=== PATIENT | female | born 2000 | race Caucasian/White ===

== ENCOUNTER 2021-08-25 00:02 | Inpatient (IN) ==
[2021-08-25] MEDS ORDERED: TERBUTALINE 1 MG/1 ML VIAL SUBCUT PRN (00:25)
[2021-08-25] MEDS ORDERED: LACTATED RINGERS 500 ML IV PRN (00:25)
[2021-08-25] MEDS ORDERED: MEPERIDINE 50 MG/1 ML VIAL IV PRN ×2 (00:26→00:34)
[2021-08-25] MEDS ORDERED: miSOPROStoL 200 MCG TABLET RECTAL PRN (00:26)
[2021-08-25] MEDS ORDERED: TRANEXAMIC ACID 1,000 MG in SODIUM CHLORIDE 0.9% 100 ML IV PRN (00:26)
[2021-08-25] MEDS ORDERED: METHYLERGONOVINE 0.2 MG/1 ML AMP IM PRN (00:26)
[2021-08-25] MEDS ORDERED: ONDANSETRON 4 MG/2 ML VIAL IV PRN ×2 (00:26→19:24)
[2021-08-25] MEDS ORDERED: OXYTOCIN/LR 20 UNIT/1,000 ML BAG IV ONE ×2 (00:26→19:24)
[2021-08-25] MEDS ORDERED: ACETAMINOPHEN 500 MG TABLET PO PRN (00:26)
[2021-08-25] MEDS ORDERED: CARBOPROST TROMETHAMINE 250 MCG/ML AMP IM PRN (00:26)
[2021-08-25] MEDS ORDERED: FAMOTIDINE 20 MG/2 ML VIAL IV SCH (00:30)
[2021-08-25] MEDS: LACTATED RINGERS 1,000 ML IV SCH ×4 (00:50→12:45)
[2021-08-25 01:26] LABS: Albumin 2.6 G/DL (3.4-5.0); Bilirubin,Total 0.5 MG/DL (0.20-1.00); Calcium 8.8 MG/DL (8.5-10.1); Osmolality,Calculated 271.7 MOS/KG (273-304); Potassium 3.7 MMOL/L (3.5-5.1); Total Protein 6.3 G/DL (6.4-8.2)
[2021-08-25 01:29] LABS: Basophils % 0.2 % (0.0-0.8); Eosinophils % 0.4 % (0.00-10.9); Hematocrit 30.3 VOL% (35.7-47.0); Hemoglobin 9.8 GM/DL (12.0-16.0); Immature Granulocytes % 0.2 %; Immature Granulocytes Absolute 0.02 #; Lymphocytes # 2.7 10*3/uL (1.4-4.0); Lymphocytes % 25.5 % (21.3-54.2); Mean Corpuscular HGB Conc 32.3 GM/DL (32-36); Mean Corpuscular Volume 87.6 FL (87-102); Mean Platelet Volume 9.6 FL (9.6-12.0); Monocytes # 1.1 10*3/uL (0.11-0.8); Monocytes % 10.5 % (1.7-12.7); Neutrophils % 63.2 % (38.7-73.9); Platelet Count 316 T/CUMM (130-400); Red Blood Count 3.46 MC/CUMM (3.8-5.5); Red Cell Distribution Width 13.8 % (9.3-17.3); White Blood Count 10.4 T/CUMM (4-12)
[2021-08-25] MEDS ORDERED: FAMOTIDINE 20 MG/2 ML VIAL IV PRN (04:45)
[2021-08-25] MEDS ORDERED: OXYTOCIN/LR 20 UNIT/1,000 ML BAG IV SCH (05:30)
[2021-08-25] MEDS ORDERED: diphenhydrAMINE 50 MG/1 ML VIAL IV PRN ×2 (07:09)
[2021-08-25] MEDS ORDERED: NALOXONE 0.4 MG/ML VIAL IV PRN (07:09)
[2021-08-25] MEDS ORDERED: FAMOTIDINE 20 MG/2 ML VIAL IV ONE (07:09)
[2021-08-25] MEDS ORDERED: hydrOXYzine HCL 25 MG/1 ML VIAL IM PRN (07:09)
[2021-08-25] MEDS ORDERED: CITRIC ACID/SODIUM CITRATE 30 ML UDCUP PO ONE (07:09)
[2021-08-25] MEDS ORDERED: ePHEDrine 50 MG/ML VIAL IV PRN (07:09)
[2021-08-25] MEDS ORDERED: PROMETHAZINE 25 MG/1 ML VIAL IM ONE (07:09)
[2021-08-25] MEDS ORDERED: LACTATED RINGERS 1,000 ML IV ONE (07:09)
[2021-08-25] MEDS: fentaNYL 2 MCG/ROPIV 0.2% EPID 100 ML EPIDURAL SCH ×2 (08:03→14:39)
[2021-08-25 09:44] LABS: Bacteria,Urine Occasional /HPF (Few); Bilirubin,Urine Negative (Negative); Blood, Urine Negative (Negative); Glucose,Urine (UA) Negative (Negative); Ketones,Urine Negative (Negative); Nitrite,Urine Negative (Negative); Protein,Urine Negative (Negative); RBC,Urine 1 /HPF (0-4); Urine Appearance Clear (Clear); Urine Color Yellow (Yellow); Urine Urobilinogen 0.2 eU/dL (<2.0); Urine pH 7.5 (4.5-8.0)
[2021-08-25] MEDS ORDERED: TRANEXAMIC ACID 1,000 MG/10 ML VIAL ONE (14:53)
[2021-08-25] MEDS ORDERED: miSOPROStoL 200 MCG TABLET ONE (14:53)
[2021-08-25] MEDS ORDERED: METHYLERGONOVINE 0.2 MG/1 ML AMP ONE (14:54)
[2021-08-25] MEDS ORDERED: CARBOPROST TROMETHAMINE 250 MCG/ML AMP IM ONE (14:54)
[2021-08-25] MEDS ORDERED: miSOPROStoL 200 MCG TABLET PO ONE (15:40)
[2021-08-25 16:03] LABS: Cord Arterial Blood HCO3 19.1 MMOL/L
[2021-08-25 16:06] LABS: Cord Venous Blood HCO3 21.5 MMOL/L; Cord Venous Blood PCO2 45.1 MMHG; Cord Venous Blood PO2 30.1
[2021-08-25 16:46] LABS: Hematocrit 39.3 VOL% (35.7-47.0); Hemoglobin 12.1 GM/DL (12.0-16.0)
[2021-08-25] MEDS ORDERED: ACETAMINOPHEN 325 MG TABLET PO PRN (19:24)
[2021-08-25] MEDS ORDERED: HYDROCORTISONE 2.5% RECTAL CREAM 30 GM TUBE TOP PRN (19:24)
[2021-08-25] MEDS ORDERED: BENZOCAINE 20%/MENTHOL 0.5% SPRAY 56 GM CAN TOP PRN ×2 (19:24→19:27)
[2021-08-25] MEDS ORDERED: LANOLIN 50% CREAM 0.3 OZ TUBE TOP PRN (19:24)
[2021-08-25] MEDS ORDERED: BISACODYL 10 MG SUPP RECTAL PRN (19:24)
[2021-08-25] MEDS ORDERED: IBUPROFEN 800 MG TABLET PO PRN ×2 (19:24→19:27)
[2021-08-25] MEDS ORDERED: MEASLES/MUMPS/RUBELLA VACCINE 0.5 ML VIAL SUBCUT ONE (19:24)
[2021-08-25] MEDS ORDERED: DIPH/TET/ACEL PERT BOOSTER VACCINE 0.5 ML VIAL IM ONE (19:24)
[2021-08-25] MEDS ORDERED: WITCH HAZEL PADS 100/JAR TOP PRN (19:24)
[2021-08-25] MEDS ORDERED: RHO(D) IMMUNE GLOBULIN 300 MCG SYRINGE IM ONE (19:24)
[2021-08-25] MEDS: DOCUSATE SODIUM 100 MG CAPSULE PO SCH (21:36)
[2021-08-26] MEDS: IBUPROFEN 800 MG TABLET PO PRN ×3 (03:59→17:21)
[2021-08-26 06:18] LABS: Basophils % 0.2 % (0.0-0.8); Eosinophils % 0.2 % (0.00-10.9); Hematocrit 30.6 VOL% (35.7-47.0); Hemoglobin 9.5 GM/DL (12.0-16.0); Immature Granulocytes % 0.6 %; Immature Granulocytes Absolute 0.06 #; Lymphocytes # 1.7 10*3/uL (1.4-4.0); Lymphocytes % 15.7 % (21.3-54.2); Mean Corpuscular Volume 87.9 FL (87-102); Monocytes % 9.6 % (1.7-12.7); Neutrophils % 73.7 % (38.7-73.9); Platelet Count 231 T/CUMM (130-400); Red Blood Count 3.48 MC/CUMM (3.8-5.5); Red Cell Distribution Width 13.9 % (9.3-17.3); White Blood Count 10.7 T/CUMM (4-12)
[2021-08-26] MEDS: DOCUSATE SODIUM 100 MG CAPSULE PO SCH ×2 (08:35→21:14)
[2021-08-26] MEDS: FERROUS SULFATE 325 MG TABLET PO SCH ×2 (08:35→21:14)
[2021-08-27] MEDS: IBUPROFEN 800 MG TABLET PO PRN ×2 (05:58→09:39)
[2021-08-27 07:34] VITALS: BP 114/63
[2021-08-27] MEDS: FERROUS SULFATE 325 MG TABLET PO SCH (09:39)
[2021-08-27] MEDS: DOCUSATE SODIUM 100 MG CAPSULE PO SCH (09:40)
== END 2021-08-27 13:55 | disposition home or self-care (01) | DRG 560 ==
LOC: N.LD 00:02 → N.OB 19:55
PROVIDERS: ADMIT Obstetrics & Gynecology; ATTEND Obstetrics & Gynecology